=== PATIENT | male | born 1940 | race Caucasian/White ===

== ENCOUNTER 2017-11-24 11:18 | Emergency (ER) | payer MEDICARE ==
[2017-11-24 11:19] VITALS: BMI 34.6
[2017-11-24] MEDS ORDERED: Sodium Chloride 0.9% 1,000 ML IV STA (12:30)
--- NOTE | 2017-11-24 12:33 | ED PDOC ---
Arrival/HPI - General Time Seen by Provider: 11/24/17 12:22 Historian: Patient - Critical Care Critical Care Minutes: 60 minutes Narrative Critical Care (Text): Patient required frequent reassessment, complex decision making, multiple specialist communication. - History of Present Illness Narrative History of Present Illness (Text): 11/24/17 12:28 77 year old male, whose past medical history includes CAD with stent, diabetes, and high cholesterol, who presents to the emergency department complaining of nausea/vomiting/diarrhea since last night. Patient notes everything he eats, he vomits up. Patient also notes difficulty urinating. Last urination was 2 days ago. Patient denies any fever, chills, chest pain, shortness of breath, back pain, neck pain, headache, dizziness, or any other complaints. Time/Duration: 24 hours Symptom Onset: Gradual Symptom Course: Unchanged Activities at Onset: Light Context: Home Past Medical History - Provider Review Nursing Documentation Reviewed: Yes Family/Social History - Physician Review Nursing Documentation Reviewed: Yes Family/Social History: Unknown Family HX Allergies/Home Meds Allergies/Adverse Reactions: Allergies No Known Allergies Allergy (Verified 08/25/16 13:46) Home Medications: Home Meds Medication Instructions Recorded Confirmed Aspirin [Adult Low Dose Aspirin EC] 81 mg PO DAILY 08/25/16 08/25/16 Atorvastatin [Lipitor] 10 mg PO DIN 08/25/16 08/25/16 Chlorthalidone [Hygroton] 25 mg PO DAILY 08/25/16 08/25/16 Clopidogrel [Plavix] 75 mg PO DAILY 08/25/16 08/25/16 Losartan [Cozaar] 100 mg PO DAILY 08/25/16 08/25/16 Metoprolol Tartrate [Lopressor] 50 mg PO DAILY 08/25/16 08/25/16 Omeprazole 40 mg PO DAILY 08/25/16 08/25/16 Pioglitazone [Actos] 15 mg PO DAILY 08/25/16 08/25/16 Sitagliptin Phos/Metformin HCl 1 each PO DAILY 08/25/16 08/25/16 [Janumet 50-1,000 mg Tablet] Review of Systems - Physician Review All systems were reviewed & negative as marked: Yes - Review of Systems Constitutional: Normal Eyes: Normal ENT: Normal Respiratory: Normal. absent: SOB, Cough Cardiovascular: Normal. absent: Chest Pain Gastrointestinal: Normal, Diarrhea, Nausea, Vomiting Genitourinary Male: Urinary Output Changes (no urinary output). absent: Dysuria Musculoskeletal: Normal. absent: Back Pain, Neck Pain Skin: Normal. absent: Rash Neurological: Normal. absent: Headache, Dizziness Endocrine: Normal Hemo/Lymphatic: Normal Psychiatric: Normal Physical Exam - Physical Exam Narrative Physical Exam (Text): 11/24/17 12:34 Constitutional: No acute distress. Head: Normocephalic. Atraumatic. Eyes: PERRL. ENT: Moist mucous membranes. Neck: Supple. Cardiovascular: Regular rate. Chest: No tenderness. Respiratory: Clear to auscultation bilaterally. GI: Diffuse mild tenderness. No rebound. No guarding. Back: No CVA tenderness. Musculoskeletal: No tenderness or swelling of extremities. Skin: Mild ecchymosis rt groin. Neurologic: Alert, no focal deficit. Vital Signs Temp Pulse Resp BP Pulse Ox 11/24/17 17:20 98.8 F 94 H 18 117/51 L 100 11/24/17 16:31 98.8 F 94 H 18 115/54 L 100 11/24/17 12:30 98.3 F 88 18 123/71 96 Medical Decision Making ED Course and Treatment: 11/24/17 12:36 Impression: 77 year olds male presents to the emergency department complaining of nausea, vomiting, diarrhea since last night. Plan: -- CT Abd/Pelvis -- Labs -- Zofran -- Sodium Chloride -- Urine Culture -- UA -- Reassess and disposition Progress Notes: 11/24/17 16:03 Abdomen/Pelvis CT reviewed, shows: LOWER THORAX: The visualized lungs are clear. LIVER: Normal in size. No gross lesion or ductal dilatation. GALLBLADDER AND BILE DUCTS: There is high-density sludge within the gallbladder. PANCREAS: Normal in sinus. No gross lesion or ductal dilatation. SPLEEN: Normal in size. There are punctate benign calcifications in the spleen. ADRENALS: No discrete nodule. KIDNEYS AND URETERS: There is mild renal cortical atrophy. No hydronephrosis. There are punctate nonobstructing stones. VASCULATURE: No aortic aneurysm. BOWEL: The small bowel loops are normal in caliber. The colon is decompressed. APPENDIX: Normal appendix. PERITONEUM: No free fluid. No free air. LYMPH NODES: No enlarged lymph nodes. BLADDER: Indwelling Moore catheter with subsequent decompression. REPRODUCTIVE: The prostate gland is normal in size. BONES: No acute fracture. Diffuse bone demineralization and multilevel degenerative disc disease. OTHER FINDINGS: There are bilateral small fat containing inguinal hernias. There is a small sliding hiatal hernia. IMPRESSION: No acute abdominal or pelvic abnormality. Punctate nonobstructing stones in the kidneys. Stigmata of prior granulomatous disease in the spleen. Patient found to have creatinine of 9 with hyperkalema, EKG showing wide complex changes. Calcium gluconate and other hyperkalemia cocktail ordered. Dr. Tao at [facility] contacted for emergent dialysis. Dr. Heaton ED attending at [facility] accepts transfer and has Surgery ready for dialysis access. - Lab Interpretations Lab Results: 11/24/17 12:55 11/24/17 12:55 Lab Results 11/24/17 12:55: Sodium 137, Potassium 8.6 H*, Chloride 96 L, Carbon Dioxide 9 L , Anion Gap 41 H, BUN 62 H, Creatinine 9.0 H*, Est GFR ( Amer) 7, Est GFR (Non-Af Amer) 6, Random Glucose 48 L*, Calcium 9.3, Total Bilirubin 0.6, AST 29, ALT 17, Alkaline Phosphatase 79, Total Protein 8.1, Albumin 4.5, Globulin 3.6, Albumin/Globulin Ratio 1.3, Lipase 544 H 11/24/17 12:55: PT 13.0 H, INR 1.13 H, APTT 32.2 11/24/17 12:55: WBC 13.8 H, RBC 4.09, Hgb 11.6 L, Hct 35.7 L, MCV 87.3, MCH 28.4 , MCHC 32.5, RDW 15.5 H, Plt Count 232, MPV 11.6 H, Gran % 76.2 H, Lymph % (Auto ) 20.6 L, [place] % (Auto) 3.0, Eos % (Auto) 0.1 L, Baso % (Auto) 0.1, Gran # 10.56 H, Lymph # (Auto) 2.9, [place] # (Auto) 0.4, Eos # (Auto) 0.0, Baso # (Auto) 0.01 - RAD Interpretation Radiology Orders: 11/24/17 12:29 ABD & PELVIS W/O PO OR IV CONT [CT] Stat - Medication Orders Current Medication Orders: Discontinued Medications Albuterol Sulfate (Albuterol 0.083% Inhal Lynette (2.5 Mg/3 Ml) Ud) 2.5 mg INH STAT STA Stop: 11/24/17 13:44 Last Admin: 11/24/17 14:03 Dose: 2.5 mg Calcium Gluconate (Calcium Gluconate Iv) 1,000 mg IVP ONCE ONE Stop: 11/24/17 13:48 Last Admin: 11/24/17 14:02 Dose: 1,000 mg IVP Administration Document 11/24/17 14:02 EQ (Rec: 11/24/17 14:03 EQ [id number]) Charges for Administration # of IVP Administrations 1 Dextrose (Dextrose 50% Inj) 50 ml IVP STAT STA Stop: 11/24/17 13:45 Last Admin: 11/24/17 14:04 Dose: 50 ml IVP Administration Document 11/24/17 14:04 EQ (Rec: 11/24/17 14:04 EQ [id number]) Charges for Administration # of IVP Administrations 1 Sodium Chloride (Sodium Chloride 0.9%) 1,000 mls @ 75 mls/hr IV .[id number] STA Stop: 11/25/17 01:49 Last Admin: 11/24/17 12:39 Dose: 75 mls/hr eMAR Start Stop Document 11/24/17 12:39 EQ (Rec: 11/24/17 12:39 EQ [id number]) Intravenous Solution Start Date 11/24/17 Start Time 12:39 Sodium Bicarbonate 150 meq/ (Dextrose) 1,150 mls @ 150 mls/hr IV .[id number] [facility] Last Admin: 11/24/17 15:36 Dose: 150 mls/hr eMAR Start Stop Document 11/24/17 15:36 EQ (Rec: 11/24/17 15:36 EQ [id number]) Intravenous Solution Start Date 11/24/17 Start Time 15:36 Insulin Human Regular (Humulin R) 5 units IVP STAT STA Stop: 11/24/17 13:45 Last Admin: 11/24/17 14:03 Dose: 5 units Comments: for hyperkalemia tx MAR Blood Glucose Document 11/24/17 14:03 EQ (Rec: 11/24/17 14:03 EQ [id number]) Blood Glucose Finger Stick Blood Glucose (70-120) 58 IVP Administration Document 11/24/17 14:03 EQ (Rec: 11/24/17 14:03 EQ [id number]) Charges for Administration # of IVP Administrations 1 Ondansetron HCl (Zofran Inj) 8 mg IVP STAT STA Stop: 11/24/17 12:31 Last Admin: 11/24/17 12:39 Dose: 8 mg IVP Administration Document 11/24/17 12:39 EQ (Rec: 11/24/17 12:40 EQ [id number]) Charges for Administration # of IVP Administrations 1 Sodium Bicarbonate (Sodium Bicarbonate 8.4% (50 Meq) Syringe) 50 meq IVP ONCE ONE Stop: 11/24/17 13:44 Last Admin: 11/24/17 14:04 Dose: 50 meq IVP Administration Document 11/24/17 14:04 EQ (Rec: 11/24/17 14:04 EQ [id number]) Charges for Administration # of IVP Administrations 1 Sodium Bicarbonate (Sodium Bicarbonate 8.4% (50 Meq) Syringe) 50 meq IVP ONCE ONE Stop: 11/24/17 14:06 Last Admin: 11/24/17 15:36 Dose: 50 meq IVP Administration Document 11/24/17 15:36 EQ (Rec: 11/24/17 15:36 EQ [id number]) Charges for Administration # of IVP Administrations 1 Sodium Polystyrene Sulfonate (Kayexalate Susp) 30 gm PO STAT STA Stop: 11/24/17 13:44 Last Admin: 11/24/17 14:04 Dose: 30 gm - Scribe Statement The provider has reviewed the documentation as recorded by the Laurenibroderick Borrero All medical record entries made by the Nakul were at my direction and personally dictated by me. I have reviewed the chart and agree that the record accurately reflects my personal performance of the history, physical exam, medical decision making, and the department course for this patient. I have also personally directed, reviewed, and agree with the discharge instructions and disposition. Disposition/Present on Arrival - Present on Arrival Any Indicators Present on Arrival: No - Disposition Have Diagnosis and Disposition been Completed?: Yes Diagnosis: Acute renal failure, Hyperkalemia Disposition: Transfer [facility] Disposition Time: 13:44 Patient Plan: Transfer To Condition: CRITICAL Referrals: Raina Navarro MD [Primary Care Provider] - Follow up with primary Forms: [employer] (Macedonian)
[2017-11-24 12:35] VITALS: RESP 18
[2017-11-24 13:21] LABS: BASO # 0.01 K/mm3 (0.0-2.0); BASO % 0.1 % (0.0-3.0); EOS % 0.1 % (1.5-5.0); GRAN # 10.56 (1.4-6.5); GRAN % 76.2 % (50.0-68.0); HEMOGLOBIN 11.6 g/dL (14.0-18.0); LYMPH # 2.9 (1.2-3.4); LYMPH % 20.6 % (22.0-35.0); MEAN CELL VOLUME 87.3 fl (80.0-105.0); MEAN CORPUSCULAR HEMOGLOBIN 28.4 pg (25.0-35.0); MEAN CORPUSCULAR HGB CONC 32.5 g/dl (31.0-37.0); MEAN PLATELET VOLUME 11.6 fl (7.0-11.0); MONO # 0.4 (0.1-0.6); RBC 4.09 10^6/uL (3.5-6.1); RED CELL DISTRIBUTION WIDTH 15.5 % (11.5-14.5); WHITE BLOOD COUNT 13.8 10^3/ul (4.5-11.0)
[2017-11-24 13:27] LABS: INR 1.13 (0.93-1.08); PARTIAL THROMBOPLASTIN TIME 32.2 Seconds (25.1-36.5)
[2017-11-24 13:40] LABS: ALB/GLOB RATIO 1.3 (1.1-1.8); ALBUMIN 4.5 g/dL (3.0-4.8); CALCIUM 9.3 mg/dL (8.4-10.5)
[2017-11-24] MEDS ORDERED: Sodium Bicarbonate (8.4%) 50 Meq Syringe IVP ONE ×2 (13:43→14:05)
[2017-11-24] MEDS ORDERED: Sod Polystyrene Sulf 15 gm/60 ml Susp PO STA (13:43)
[2017-11-24] MEDS ORDERED: Albuterol 0.083% Inhal Sol (2.5 mg/3 mL) UD INH STA (13:43)
[2017-11-24] MEDS ORDERED: Insulin Regular 1 UNITS/0.01 ML ML IVP STA (13:44)
[2017-11-24] MEDS ORDERED: Dextrose 50% SYRINGE Inj (50 ml) IVP STA (13:44)
[2017-11-24] MEDS ORDERED: Sodium Bicarbonate 8.4% 150 MEQ in Dextrose 5% In Water 1,000 ML IV SCH (14:15)
--- NOTE | 2017-11-24 15:56 | CT ---
PROCEDURE: CT Abdomen and Pelvis without intravenous contrast HISTORY: diffuse abdominal pain, vomiting, diarrhea COMPARISON: None. TECHNIQUE: CT scan of the abdomen and pelvis was performed without administration of intravenous contrast. Oral contrast was not administered. Coronal and sagittal reformatted images were obtained. Radiation dose: Total exam DLP = 825.33 mGy-cm. This CT exam was performed using one or more of the following dose reduction techniques: Automated exposure control, adjustment of the mA and/or kV according to patient size, and/or use of iterative reconstruction technique. FINDINGS: LOWER THORAX: The visualized lungs are clear. LIVER: Normal in size. No gross lesion or ductal dilatation. GALLBLADDER AND BILE DUCTS: There is high-density sludge within the gallbladder. PANCREAS: Normal in sinus. No gross lesion or ductal dilatation. SPLEEN: Normal in size. There are punctate benign calcifications in the spleen. ADRENALS: No discrete nodule. KIDNEYS AND URETERS: There is mild renal cortical atrophy. No hydronephrosis. There are punctate nonobstructing stones. VASCULATURE: No aortic aneurysm. BOWEL: The small bowel loops are normal in caliber. The colon is decompressed. APPENDIX: Normal appendix. PERITONEUM: No free fluid. No free air. LYMPH NODES: No enlarged lymph nodes. BLADDER: Indwelling Moore catheter with subsequent decompression. REPRODUCTIVE: The prostate gland is normal in size. BONES: No acute fracture. Diffuse bone demineralization and multilevel degenerative disc disease. OTHER FINDINGS: There are bilateral small fat containing inguinal hernias. There is a small sliding hiatal hernia. IMPRESSION: No acute abdominal or pelvic abnormality. Punctate nonobstructing stones in the kidneys. Stigmata of prior granulomatous disease in the spleen.
[2017-11-24 16:31] VITALS: PULSE 94; TEMP 98.8; O2SAT 100
[2017-11-24 17:45] VITALS: BP 117/51
--- NOTE | 2017-11-25 08:55 | CARD ---
APPROVED REPORT EKG Measurement Heart [id number] IA [id number] <Conclusion> Normal sinus rhythm with 1st degree AVB Low voltage QRS Inferior infarct, possibly acute Anterior infarct, possibly acute Prolonged QT STTW changes c/w ischemia ACUTE [place]
== END 2017-11-24 17:20 | disposition short-term general hospital (02) ==
LOC: ED 11:18
DX: N17.9 Acute kidney failure, unspecified (principal); E87.5 Hyperkalemia; E11.9 Type 2 diabetes mellitus without complications; E78.00 Pure hypercholesterolemia, unspecified; I25.10 Atherosclerotic heart disease of native coronary artery without angina pectoris
CPT/HCPCS: 74176; 80053; 83690; 85025; 85610; 85730; 93005; 96374; 96375; 96376; 99284; J0610; J2405; J7030; J7070